=== PATIENT | female | born 1940 | race Caucasian/White ===

== ENCOUNTER 2016-05-10 00:22 | Observation (INO) ==
--- NOTE | 2016-05-10 04:04 | Internal Med History&Physical ---
Date of Encounter: 05/10/16 Time of Encounter: 03:56 Assessment and Plan (1) Hypertension Current visit: Yes Status: Acute Hold blood pressure medications allow for permissive hypertension. Qualifiers: Qualified Code(s): I15.0 - Renovascular hypertension (2) CAD (coronary artery disease) Current visit: Yes Status: Acute Stable no chest pain continue aspirin Qualifiers: Qualified Code(s): I25.10 - Atherosclerotic heart disease of [place] coronary artery without angina pectoris (3) CKD stage G3b/A2, GFR 30-44 and albumin creatinine ratio 30-299 mg/g Current visit: Yes Status: Acute Stable (4) Transient cerebral ischemia Current visit: No Status: Acute Neurological exam is currently normal no focal neurological deficits speech is normal. Stroke workup will be performed. neurology consultation aspirin and statin. Telemetry monitoring Qualifiers: Transient cerebral ischemia type: unspecified Qualified Code(s): G45.9 - Transient cerebral ischemic attack, unspecified Internal Medicine - H&P: HPI Chief complaint: difficult finding words History of present illness: Ms. Spencer is a 75 year old female with a past medical history of coronary artery disease status post cabbage in November 2014, CKD stage 3, dyslipidemia , hypertension recently taken off lisinopril because of concern of worsening kidney functions of hyperkalemia presents to [place] emergency room today with difficulty finding words. Approximately 10 PM patient while speaking with her friend and noted that she was having problems finding the right words. This complaint lasted for approximately one hour. She denied any focal upper or lower extremity weakness, tingling or numbness in any extremity, facial symmetry or speech sluriness. No prior similar problems. No history of each fibrillation. Patient is an ex smoker has 4C pack/year smoking history. She denies alcohol or drugs. She still drives. Past Med Surg Social Fam HX - Past Medical History Medical history: hypertension, other Psychiatric history: no psych history - Past Surgical History Surgical History: appendectomy, colectomy, colostomy, coronary bypass (CABG), herniorrhaphy, hysterectomy, other - Social History Smoking Status: Unknown if ever smoked Smokeless Tobacco Status: No Alcohol use: rarely Drug use: none - Family History Mother Living Status: Hx Family Cardiac Disorders: Yes (HTN) Hx Family Respiratory Disorders: No Hx Family Cancer: Yes Hx Family GI Disorders: No Hx Family Endocrine Disorder: No Hx Family Neuromuscular Disorders: No Hx Family Neurologic Disorders: No Hx Family HEENT Disorders: No Hx Family Autoimmune Disorders: No Father Living Status: Hx Family Cardiac Disorders: Yes Hx Family Respiratory Disorders: Yes (lung) Hx Family Cancer: Yes (esophageal ca) Hx Family GI Disorders: Yes Hx Family Endocrine Disorder: No Hx Family Neuromuscular Disorders: No Hx Family Neurologic Disorders: No Hx Family HEENT Disorders: No Hx Family Autoimmune Disorders: No Internal Medicine - H&P: Meds Nitroglycerin 0.4 mg SL Q5MIN PRN 11/22/14 [History] Aspirin Enteric Coated [Aspirin EC] 81 mg PO DAILY 07/25/15 [History] Cyanocobalamin (Vitamin B-12) [Vitamin B-12] 1,000 mcg SL DAILY 07/25/15 [ History] Metoprolol XL (24 HR) Succ [Toprol Xl] 50 mg PO DAILY 07/25/15 [History] Estradiol [Estrace] 1 mg PO DAILY 10/08/15 [History] Simvastatin [Zocor] 10 mg PO HS 10/08/15 [History] Allergies No Known Allergies Allergy (Verified 05/09/16 23:24) All Systems PM: A 10-system review of systems was performed and is negative for pertinent findings except as documented above in the HPI. Review of systems: 10 point ROS is negative except for HPI - Constitutional Vitals: Temp Pulse Resp BP Pulse Ox 98.1 F 71 18 128/47 96 05/10/16 02:03 05/10/16 02:03 05/10/16 02:03 05/10/16 02:03 05/10/16 02:03 Exam: Gen.: patient is alert oriented times 3 not in distress Cardiac: normal S1 S2 and all additional sounds or murmurs chest: clear with auscultation bilaterally abdomen: soft nontender nondistended lower extremity lax calf muscles Neuro: No focal deficits, normal speech
[2016-05-10] MEDS ORDERED: *HR* Heparin 5,000 UNIT/ML VIAL SQ SCH (07:00)
[2016-05-10] MEDS: Aspirin Enteric Coated 81 MG Tablet PO SCH ×2 (08:55→08:56)
[2016-05-10] MEDS ORDERED: Famotidine 20 MG TABLET PO SCH (09:00)
--- NOTE | 2016-05-10 12:18 | Event Note ---
Date of Encounter: 05/10/16 Time of Encounter: 12:16 The patient expressed concern about having to stay here tonight. Unfortunately the radiology service is very busy at the moment and one be able to have her MRI done right away. Also her echocardiogram and carotid ultrasounds have not been completed yet. I explained to the patient the most likely all of those reports will be available tomorrow. Her difficulty finding words only lasted for almost 2 hours it has completely resolved at the moment. Neurology has not seen the patient yet. The patient agreed to stay overnight but wants to be discharged very early in the morning. Continue aspirin for now. Risks of leaving AGAINST MEDICAL ADVICE were explained including another stroke.
--- NOTE | 2016-05-10 15:57 | ECHO - Doppler Report ---
Echo with Saline Contrast Name: Adrienne Spencer Date of Study: 05/10/2016 Date: 1940 Ht: 65.0 in Medical Record#: [id number] Age: 75 Wt: 142.0 lb Gender: Female BSA: 1.71 Order #: [id number] Location: [facility] Room #: [id number] Reading Physician: Miles Vasquez DO, FACBrianna, DARIO DUVAL Windows Systems Admin: Harlan Oro RN Ordering Physician: Francis Clay MD Primary Physician: Jacoby Yadav MD Indications: Transient Ischemic Attack Impressions: LVEF 65%. Normal LV chamber size, wall thickness and function. Mild left ventricular diastolic dysfunction. Normal right ventricular structure and function. PFO with a right to left shunt after adminstration of agitated saline. No significant valvular dysfunction. Left Ventricular Wall Motion: Rest Echo Findings All wall segments showed normal motion. Findings: Study Quality * Technically adequate exam. ECG Findings * Normal sinus rhythm. Left Ventricle * LVEF 65%. * Normal LV chamber size, wall thickness and function. * Mild left ventricular diastolic dysfunction. Right Ventricle * Normal right ventricular structure and function. Left Atrium * Mildly dilated left atrium. Right Atrium * Normal right atrial size. Interatrial Septum * PFO with a right to left shunt after adminstration of agitated saline. Aortic Valve * Trileaflet aortic valve. * Mildly sclerotic aortic valve leaflets. * No aortic regurgitation. * No aortic stenosis. Mitral Valve * Mildly thickened mitral valve leaflets. * No mitral regurgitation. * No mitral stenosis. Tricuspid Valve * Normal tricuspid valve structure and function. * Trace tricuspid regurgitation. * No evidence of pulmonary hypertension. Pulmonic Valve * Normal pulmonic valve structure and function. * Trace pulmonic regurgitation. Aorta * Normally sized aortic root. Pericardium * The pericardium appears normal. IVC * Normal IVC dimensions and inspiratory collapse. Pulmonary Artery * Normal visualized portions of the main pulmonary artery. History Hypertension Hypercholesteremia Years 40 Packs 1 Family History of CAD History of CAD/PTCA Coronary Artery Bypass Graft 11/28/2014 a Previous Echo was performed. Contrast: Agitated saline 20 ml. Measurements: BP: 144/ 55 2D Normal Values RVIDd: 2.60 cm <2.7 cm IVSd: .80 cm 0.6 - 1.0 cm LVIDd: 4.20 cm 3.7 - 5.6 cm LVPWd: .80 cm 0.6 - 1.1 cm LVIDs: 2.40 cm 1.5 - 3.6 cm LA: 3.90 cm 2.0 - 4.0cm %FS: 42.90 cm >25 % LVOT Diam: 1.80 cm LA volume: 51 Mitral Valve Peak E:.84 m/sec Peak A:.88 m/sec E/A Ratio:1 Peak E' Lat Zhou:7.51 cm/s Peak E' Med Zhou:6.63 cm/s E/E' Lat Ratio:11.2 E/E' Med Ratio:12.7 Tricuspid Valve TV Regurg Peak Grad: 21.00mmHg TV Regurg Peak Zhou: 2.27m/sec Updated by Miles Vasquez DO, FACBrianna, DARIO DUVAL on 05/10/2016 3:53:05 PM electronically signed on 05/10/2016 3:53:46 PM with status of Final [place]: 1=Normal, 2=Hypokinesis, 3=Akinesis, 4=Dyskinesis, 5=Aneurysmal, 6=Hyperkinetic, X=Not Visualized (Blank)=Missing
[2016-05-10 16:16] VITALS: BP 146/74
--- NOTE | 2016-05-11 16:43 | Carotid Imaging Report ---
Carotid Duplex Patient Name:Adrienne Spencer Order Number:[id number] Procedure Date:05/10/2016 Date:2Age:75 yrs Gender:Female Lt BP:137 / 64 mmHg Rt.BP:144 / 55 mmHgHeart Rate: Location:[facility] Room #: [id number] Structural Designer:Harlan Oro RN Referring MD:Francis Clay MD advisory software engineer:Jacoby Yadav MD Reading MD:Fercho Massey MD Primary Indications:Transient Ischemic Attack Risk Factors Yes/No Hypertension Yes Diabetes No Hypercholesterolemia Yes Smoker Previous Yes Hx of TIA Yes Hx of CVA No Anticoagulants No Hx of CAD/PTCA Yes Previous Vascular Surgery No Impressions: The right internal carotid artery has a 40-59% stenosis. The left internal carotid artery has a 60-79% stenosis. Recommendations: Risk factor reduction. Further evaluation recommended if clinically indicated. Follow-up carotid duplex in 1 year. Test completed on 05/10/2016 at 3:10:00 pm. Findings Carotid Duplex: Right: There is nonstenotic plaque in the right proximal common carotid artery with a PSV of 97 cm/s and a EDV of 15 cm/s. There is smooth heterogeneous plaque. There is nonstenotic plaque in the right mid common carotid artery with a PSV of 93 cm/s and a EDV of 17 cm/s. There is smooth heterogeneous plaque. There is nonstenotic plaque in the right distal common carotid artery with a PSV of 84 cm/s and a EDV of 15 cm/s. There is smooth heterogeneous plaque. There is nonstenotic plaque in the right bifurcation with a PSV of 99 cm/s and a EDV of 19 cm/s. There is smooth heterogeneous plaque. There is 40-59% stenosis in the right proximal internal carotid artery with a PSV of 130 cm/s and a EDV of 26 cm/s. There is smooth heterogeneous plaque. There is 40-59% stenosis in the right mid internal carotid artery with a PSV of 134 cm/s and a EDV of 29 cm/s. The right distal internal carotid artery has a PSV of 112 cm/s and a EDV of 30 cm/s. There is nonstenotic plaque in the right eca with a PSV of 106 cm/s and a EDV of 6 cm/s. There is smooth heterogeneous plaque. The right vertebral artery has a PSV of 57 cm/s and a EDV of 10 cm/s. Left: There is nonstenotic plaque in the left proximal common carotid artery with a PSV of 67 cm/s and a EDV of 9 cm/s. There is smooth heterogeneous plaque. There is nonstenotic plaque in the left mid common carotid artery with a PSV of 103 cm/s and a EDV of 22 cm/s. There is smooth heterogeneous plaque. There is nonstenotic plaque in the left distal common carotid artery with a PSV of 101 cm/s and a EDV of 18 cm/s. There is smooth heterogeneous plaque. There is nonstenotic plaque in the left bifurcation with a PSV of 79 cm/s and a EDV of 9 cm/s. There is smooth heterogeneous plaque. There is 40-59% stenosis in the left proximal internal carotid artery with a PSV of 155 cm/s and a EDV of 27 cm/s. There is smooth heterogeneous plaque. There is 60-79% stenosis in the left mid internal carotid artery with a PSV of 191 cm/s and a EDV of 27 cm/s. The left distal internal carotid artery has a PSV of 99 cm/s and a EDV of 22 cm/s. There is nonstenotic plaque in the left eca with a PSV of 114 cm/s and a EDV of 10 cm/s. There is smooth heterogeneous plaque. The left vertebral artery has a PSV of 48 cm/s and a EDV of 8 cm/s. Prior Study: No prior study available for comparison. Carotid Results Right PSV EDV Assessment Proximal CCA 97 15 Non Stenotic Plaque Mid CCA 93 17 Non Stenotic Plaque Distal CCA 84 15 Non Stenotic Plaque Bifurcation 99 19 Non Stenotic Plaque Proximal ICA 130 26 40-59% stenosis Mid ICA 134 29 40-59% stenosis Distal ICA 112 30 Normal ECA 106 6 Non Stenotic Plaque Vertebral Artery 57 10 Normal Left PSV EDV Assessment Proximal CCA 67 9 Non Stenotic Plaque Mid CCA 103 22 Non Stenotic Plaque Distal CCA 101 18 Non Stenotic Plaque Bifurcation 79 9 Non Stenotic Plaque Proximal ICA 155 27 40-59% stenosis Mid ICA 191 27 60-79% stenosis Distal ICA 99 22 Normal ECA 114 10 Non Stenotic Plaque Vertebral Artery 48 8 Normal Ratio's Right ICA/CCA Ratio: 1.44 ICA/CCA Values: 134/93 Left ICA/CCA Ratio: 1.85 ICA/CCA Values: 191/103 Updated by Fercho Massey MD on 05/11/2016 4:36:28 PM electronically signed on 05/11/2016 4:36:57 PM with status of Final
--- NOTE | 2016-05-18 12:09 | Event Note ---
Date of Encounter: 05/18/16 Time of Encounter: 12:08 Reviewing records, patient left AMA. Her Echo revealed PFO. In review of [facility], her PCP Dr Yadav is aware.
== END 2016-05-10 18:10 | disposition left against medical advice (07) ==
LOC: 3BNU
PROVIDERS: ADMIT Hospitalist; ATTEND Nurse Practitioner Family

== ENCOUNTER 2019-01-08 07:51 | Inpatient (IN) ==
[~2019-01-08 07:51] MED LIST: Total Joint Mixture (50 ml) IR ONE
[2019-01-08] MEDS ORDERED: CeFAZolin Syr 2,000MG/20 ML 2,000 MG/20 ML SYRINGE IVPB ONE (08:24)
[2019-01-08] MEDS ORDERED: Ringers Solution, Lactated 1,000 ML IVC SCH (08:30)
[2019-01-08] MEDS ORDERED: Pregabalin 75 MG CAPSULE PO ONE (08:34)
[2019-01-08] MEDS ORDERED: Acetaminophen IV 1,000 MG/100 ML INFUS..BTL IVPB ONE (08:34)
[2019-01-08] MEDS ORDERED: Propofol 500 MG/50 ML INFUS..BTL ONE (08:38)
[2019-01-08] MEDS ORDERED: ROPIVACAINE/PF/NS 0.25% 1 EACH SYRINGE INTRAART ONE (09:06)
[2019-01-08] MEDS ORDERED: Ethanol\\Acetic Acid\\Na Ace\\Ben 1,000 ML IRRIG.SOLN IR ONE (09:35)
[2019-01-08] MEDS ORDERED: *HR* Midazolam HCl 2 MG/2 ML VIAL ONE (09:41)
[2019-01-08] MEDS ORDERED: *HR* OxyCODONE Immed Rel 5 MG TABLET PO PRN (09:50)
[2019-01-08] MEDS ORDERED: Ondansetron 4 MG/2 ML VIAL IVP ONE (09:50)
[2019-01-08] MEDS ORDERED: Tranexamic Acid 1,000 MG/10 ML VIAL ONE (10:31)
[2019-01-08] MEDS ORDERED: Ondansetron 4 MG/2 ML VIAL ONE (10:35)
[2019-01-08] MEDS ORDERED: Dexamethasone 4 MG/ML VIAL ONE (10:35)
[2019-01-08 12:22] LABS: Hematocrit 34.8 % (35.3-44.9); Hemoglobin 11.2 g/dL (11.5-15.4)
[2019-01-08] MEDS ORDERED: Ondansetron 4 MG/2 ML VIAL IVP PRN (13:58)
[2019-01-08] MEDS ORDERED: Temazepam 15 MG CAPSULE PO PRN (13:58)
[2019-01-08] MEDS ORDERED: Sennosides 8.6 MG TABLET PO PRN (13:58)
[2019-01-08] MEDS ORDERED: MOM Conc 10 ML UD.LIQ PO PRN (13:58)
[2019-01-08] MEDS ORDERED: Naloxone 0.4 MG/ML INJ IVP PRN (13:58)
[2019-01-08] MEDS ORDERED: traMADol 50 MG TABLET PO PRN (13:58)
[2019-01-08] MEDS ORDERED: *HR* Promethazine 25 MG/ML VIAL IVP PRN (13:58)
[2019-01-08] MEDS: *HR* OxyCODONE Immed Rel 5 MG TABLET PO PRN ×2 (15:23→21:51)
[2019-01-08] MEDS: Ascorbic Acid 500 MG TABLET PO SCH (16:31)
[2019-01-08] MEDS: HYDROcodone BIT/Homatropine 5 MG TABLET PO PRN (16:43)
[2019-01-08] MEDS: Ringers Solution, Lactated 1,000 ML IVC SCH (21:52)
[2019-01-09] MEDS: HYDROcodone BIT/Homatropine 5 MG TABLET PO PRN ×3 (00:15→21:01)
[2019-01-09] MEDS: *HR* OxyCODONE Immed Rel 5 MG TABLET PO PRN ×5 (02:06→23:26)
[2019-01-09] MEDS: Ringers Solution, Lactated 1,000 ML IVC SCH (03:28)
[2019-01-09 05:44] LABS: Basophils % 0.1 %; Eosinophils % 0.1 %; Hematocrit 30.5 % (35.3-44.9); Hemoglobin 9.8 g/dL (11.5-15.4); Immature Granulocytes % 0.7 % (0-4); Lymphocytes % 6.3 %; Mean Corpuscular HGB Conc 32.1 g/dL (31.6-35.5); Mean Corpuscular Volume 90.2 fL (83.0-100.0); Mean Platelet Volume 10.4 fL (9.4-12.4); Monocytes # 1.1 K/mcL (0.0-1.3); Monocytes % 7.2 %; Neutrophils # 12.9 K/mcL (1.6-8.9); Platelet Count 272 K/mcL (140-400); Red Blood Count 3.38 M/mcL (3.82-4.97); Red Cell Distribution Width 14.3 % (11.5-14.5); Segmented Neutrophils % 85.6 %; White Blood Count 15.1 K/mcL (4.3-11.1)
[2019-01-09 06:00] LABS: Calcium 8.5 mg/dL (8.6-10.3); Potassium 4.8 mEq/L (3.5-5.1)
[2019-01-09] MEDS: Multivit/Ca/Min/Fe/FA 1 TAB TABLET PO SCH (08:32)
[2019-01-09] MEDS: Aspirin Enteric Coated 81 MG Tablet PO SCH (08:34)
[2019-01-09] MEDS: Ascorbic Acid 500 MG TABLET PO SCH ×2 (08:34→16:29)
[2019-01-09] MEDS: Cyanocobalamin (B-12) 1,000 MCG TABLET PO SCH (08:34)
[2019-01-09] MEDS: amLODIPine 5 MG TABLET PO SCH (08:37)
[2019-01-09] MEDS: Vitamin E 200 UNIT (90MG) CAPSULE PO SCH (08:38)
[2019-01-09] MEDS: Lisinopril 20 MG TABLET PO SCH (08:38)
[2019-01-09] MEDS: Metoprolol XL (24 HR) Succ 25 MG TAB.ER.24H PO SCH (08:38)
[2019-01-09] MEDS ORDERED: *HR* Enoxaparin 30 MG/0.3 ML SYRINGE SQ SCH (10:08)
[2019-01-09] MEDS: *HR* Enoxaparin 30 MG/0.3 ML SYRINGE SQ SCH (18:32)
[2019-01-10] MEDS: *HR* HYDROmorphone (PF) 1 MG/ML SYRINGE IVP PRN ×3 (02:10→23:25)
[2019-01-10] MEDS: *HR* Enoxaparin 30 MG/0.3 ML SYRINGE SQ SCH ×2 (05:31→19:07)
[2019-01-10] MEDS: *HR* OxyCODONE Immed Rel 5 MG TABLET PO PRN ×3 (05:31→19:06)
[2019-01-10] MEDS ORDERED: Ketorolac 30 MG/ML VIAL IVP PRN (06:20)
[2019-01-10 07:22] LABS: Basophils # 0.1 K/mcL (0.0-0.2); Basophils % 0.6 %; Eosinophils # 0.5 K/mcL (0.0-0.6); Eosinophils % 4.8 %; Hematocrit 34.5 % (35.3-44.9); Hemoglobin 11.1 g/dL (11.5-15.4); Immature Granulocytes % 0.4 % (0-4); Lymphocytes # 1.5 K/mcL (0.6-4.6); Lymphocytes % 12.9 %; Mean Corpuscular HGB Conc 32.2 g/dL (31.6-35.5); Mean Corpuscular Hemoglobin 29.2 pg (28.0-33.3); Mean Corpuscular Volume 90.8 fL (83.0-100.0); Mean Platelet Volume 10.8 fL (9.4-12.4); Monocytes # 1.1 K/mcL (0.0-1.3); Monocytes % 9.4 %; Neutrophils # 8.2 K/mcL (1.6-8.9); Platelet Count 262 K/mcL (140-400); Red Cell Distribution Width 14.5 % (11.5-14.5); Segmented Neutrophils % 71.9 %; White Blood Count 11.3 K/mcL (4.3-11.1)
[2019-01-10 07:41] LABS: Calcium 9.1 mg/dL (8.6-10.3); Potassium 4.3 mEq/L (3.5-5.1)
[2019-01-10] MEDS: Multivit/Ca/Min/Fe/FA 1 TAB TABLET PO SCH (08:18)
[2019-01-10] MEDS: Lisinopril 20 MG TABLET PO SCH (08:18)
[2019-01-10] MEDS: Ascorbic Acid 500 MG TABLET PO SCH ×2 (08:18→15:41)
[2019-01-10] MEDS: Aspirin Enteric Coated 81 MG Tablet PO SCH (08:18)
[2019-01-10] MEDS: Metoprolol XL (24 HR) Succ 25 MG TAB.ER.24H PO SCH (08:18)
[2019-01-10] MEDS: Cyanocobalamin (B-12) 1,000 MCG TABLET PO SCH (08:19)
[2019-01-10] MEDS: amLODIPine 5 MG TABLET PO SCH (08:19)
[2019-01-10] MEDS: Vitamin E 200 UNIT (90MG) CAPSULE PO SCH (11:30)
[2019-01-10 11:38] LABS: Hematocrit 33.4 % (35.3-44.9); Hemoglobin 10.8 g/dL (11.5-15.4); Mean Corpuscular HGB Conc 32.3 g/dL (31.6-35.5); Mean Corpuscular Volume 92.8 fL (83.0-100.0); Mean Platelet Volume 10.2 fL (9.4-12.4); Platelet Count 266 K/mcL (140-400); Red Cell Distribution Width 14.4 % (11.5-14.5)
[2019-01-10 11:58] LABS: Calcium 8.9 mg/dL (8.6-10.3); Potassium 4.3 mEq/L (3.5-5.1)
[2019-01-10] MEDS ORDERED: 0.9 % Sodium Chloride 1,000 ML IVC SCH (12:45)
[2019-01-10] MEDS ORDERED: 0.9 % Sodium Chloride 1,000 ML ONE (12:48)
[2019-01-10] MEDS: HYDROcodone BIT/Homatropine 5 MG TABLET PO PRN (20:32)
[2019-01-11] MEDS: *HR* OxyCODONE Immed Rel 5 MG TABLET PO PRN ×3 (00:56→11:38)
[2019-01-11] MEDS: HYDROcodone BIT/Homatropine 5 MG TABLET PO PRN ×3 (02:35→13:35)
[2019-01-11 04:42] LABS: Hemoglobin 9.8 g/dL (11.5-15.4); Mean Corpuscular HGB Conc 31.6 g/dL (31.6-35.5); Mean Corpuscular Hemoglobin 29.6 pg (28.0-33.3); Mean Corpuscular Volume 93.7 fL (83.0-100.0); Mean Platelet Volume 10.5 fL (9.4-12.4); Platelet Count 253 K/mcL (140-400); Red Blood Count 3.31 M/mcL (3.82-4.97); Red Cell Distribution Width 14.8 % (11.5-14.5); White Blood Count 8.2 K/mcL (4.3-11.1)
[2019-01-11 05:06] LABS: BUN/Creatinine Ratio 21 (6-26); Blood Urea Nitrogen 18 mg/dL (8-23); Calcium 8.5 mg/dL (8.6-10.3); Carbon Dioxide 23 mEq/L (23-29); Chloride 108 mEq/L (98-107); Glucose 111 mg/dL (70-105); Osmolality,Calculated 287 (280-300); Potassium 4.1 mEq/L (3.5-5.1); Sodium 137 mEq/L (136-145); eGFR For African Americans > 60 (> 60); eGFR For Non-African Americans > 60 (> 60)
[2019-01-11] MEDS: *HR* Enoxaparin 30 MG/0.3 ML SYRINGE SQ SCH (05:54)
[2019-01-11] MEDS: Ringers Solution, Lactated 1,000 ML IVC SCH (06:10)
[2019-01-11] MEDS: *HR* HYDROmorphone (PF) 1 MG/ML SYRINGE IVP PRN (07:15)
[2019-01-11] MEDS: Aspirin Enteric Coated 81 MG Tablet PO SCH (08:50)
[2019-01-11] MEDS: Multivit/Ca/Min/Fe/FA 1 TAB TABLET PO SCH (08:50)
[2019-01-11] MEDS: Vitamin E 200 UNIT (90MG) CAPSULE PO SCH (08:51)
[2019-01-11] MEDS: Ascorbic Acid 500 MG TABLET PO SCH (08:51)
[2019-01-11] MEDS: Cyanocobalamin (B-12) 1,000 MCG TABLET PO SCH (08:51)
[2019-01-11] MEDS: amLODIPine 5 MG TABLET PO SCH (08:52)
[2019-01-11] MEDS: Metoprolol XL (24 HR) Succ 25 MG TAB.ER.24H PO SCH (08:52)
[2019-01-11] MEDS: Lisinopril 20 MG TABLET PO SCH (08:52)
[2019-01-11] MEDS ORDERED: Gabapentin 100 MG CAPSULE PO SCH (10:15)
[2019-01-11 11:42] VITALS: BP 123/66
[2019-01-11] MEDS ORDERED: FLU Vac QV 19-20 (6Month+)/PF 0.5 ML SYRINGE IM ONE (11:54)
== END 2019-01-11 13:38 | DRG 470 ==
LOC: SAMDAY 07:51 → 3NENU 12:36
PROVIDERS: ADMIT Orthopaedic Surgery; ATTEND Orthopaedic Surgery